=== PATIENT | female | born 1980 | race Two or more races ===

== ENCOUNTER 2018-07-14 08:00 | Outpatient (CLI) | payer OTHER ==
[2018-07-14 13:09] LABS: BUN - BLOOD UREA NITROGEN 14 mg/dL (6-20); CALCIUM 9.1 mg/dL (8.5-10.3); CARBON DIOXIDE - CO2 26 mmol/L (21-32); CHLORIDE 100 mmol/L (101-111); CHOL/HDL RATIO 4.1 (<4.4); CHOLESTEROL 156 mg/dL; CREATININE 0.8 mg/dL (0.4-1.0); GFR - MDRD 81 (>89); GLUCOSE 112 mg/dL (70-100); HDL CHOLESTEROL 38 mg/dL; LDL CHOLESTEROL,CALCULATED 97 mg/dL; LDL/HDL RATIO 2.6 (<4.4); SODIUM 136 mmol/L (135-145); VLDL CHOLESTEROL 21 mg/dL
== END 2018-07-14 23:59 | disposition home or self-care (01) ==
LOC: LAB.N 08:00
PROVIDERS: ATTEND Nurse Practitioner Gerontology
DX: I10 Essential (primary) hypertension (principal)
CPT/HCPCS: 36415; 80048; 80061; 83721

== ENCOUNTER 2019-05-19 14:55 | Outpatient (CLI) | payer BC | END 2019-05-19 23:59 | disposition home or self-care (01) | LOC: LAB.N 14:55 | PROVIDERS: ATTEND Nurse Practitioner Gerontology | DX: E03.9 Hypothyroidism, unspecified (principal); Z20.2 Contact with and (suspected) exposure to infections with a predominantly sexual mode of transmission; Z11.3 Encounter for screening for infections with a predominantly sexual mode of transmission | CPT/HCPCS: 36415; 81599; 84443; 86592 ==

== ENCOUNTER 2022-01-22 09:30 | Inpatient (IN) | payer MEDICAID ==
[2022-01-22] MEDS ORDERED: LABETALOL 20 MG/4 ML SYRINGE IVP ONE ×3 (10:07→12:13)
[2022-01-22] MEDS: NIFEdipine ER 30 MG TABLET PO SCH (10:09)
[2022-01-22 10:20] LABS: BASOPHILS % (AUTO) 0.4 %; EOSINOPHILS # (AUTO) 0.4 10^3/uL (0.0-0.7); EOSINOPHILS % (AUTO) 3.4 %; LYMPHOCYTES # (AUTO) 1.8 10^3/uL (1.5-3.5); LYMPHOCYTES % (AUTO) 15.5 %; MEAN CORPUSCULAR HEMOGLOBIN 20.9 pg (27.0-31.0); MEAN CORPUSCULAR VOLUME 69.8 fL (81.0-99.0); MEAN PLATELET VOLUME 9.8 fL (7.9-10.8); MONOCYTES # (AUTO) 0.7 10^3/uL (0.0-1.0); MONOCYTES % (AUTO) 6.4 %; NEUTROPHILS # (AUTO) 8.3 10^3/uL (1.5-6.6); NEUTROPHILS % (AUTO) 73.5 %; PLT - PLATELET COUNT 232 10^3/uL (130-450); RED CELL DISTRIBUTION WIDTH 17.3 % (12.0-15.0); WHITE BLOOD COUNT 11.3 x10^3/uL (4.8-10.8)
[2022-01-22 10:41] LABS: PROTEIN/CREATININE RATIO,URINE 0.5 (<=0.2)
[2022-01-22 10:59] LABS: ALBUMIN 2.8 g/dL (3.2-5.5); ALBUMIN/GLOBULIN RATIO 0.8 (1.0-2.2); BILIRUBIN,TOTAL 0.3 mg/dL (0.2-1.0); CALCIUM 8.8 mg/dL (8.5-10.3); CREATININE 0.7 mg/dL (0.4-1.0); POTASSIUM 3.8 mmol/L (3.5-5.0); TOTAL PROTEIN 6.5 g/dL (6.7-8.2)
--- NOTE | 2022-01-22 13:04 | PROVIDER PROGRESS NOTE ---
- HPI Current : Patient is a 41-year-old G1, P0 at 35 weeks gestation by LMP consistent with 11- week ultrasound, JASPER 02/26/2022, presenting to triage for elevated blood pressures in the setting of chronic hypertension. She was seen in clinic today for a first OB visit as a transfer from [place]. Blood pressure in clinic was 184/102. She was sent for evaluation for preeclampsia. She has had ongoing hypertension since approximately age 26. She was managed on lisinopril/hydrochlorothiazide prior to . She was switched to labetalol in but believes this caused her edema so she stopped approximately 1 month ago. She has not had anything in the interim. She has good movement, no leaking, no vaginal bleeding. She denies headache, right upper quadrant pain, changes in vision. She occasionally has headaches, but these have been easy to resolve. 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 This was followed and on 10/17/2021 was 1.16. 1 hour GTT of 117, Anemia at 8 g/dL taking ferrous sulfate. Chronic hypertension managed with labetalol, although patient has not been taking this. Uterine fibroids: Currently 6 cm low uterine segment anterior fibroid: Likely make labor difficult, and previous provider recommended a scheduled section Blood type: O+ Antibody screen negative H/H: 8.9/29.3% Pap: Negative Rubella: Immune RPR: Positive HBsAg: Negative HIV negative GC/CT: Negative/negative. Labs Past medical history Chronic hypertension: Managed with lisinopril/hydrochlorothiazide outside of Anemia Anxiety late latent syphilis Past surgical history Denies Family history Mother: Diabetes All other symptoms reviewed and were negative except per HPI. Social history Denies tobacco, alcohol, drugs Vital Signs Temperature 98.6 F 01/22/22 09:46 Heart Rate 78 01/22/22 09:46 Respiratory Rate 01/22/22 09:46 Blood Pressure 181/79 H 01/22/22 09:46 O2 Saturation 100 01/22/22 09:46 - Exam Physical Constitutional: alert, no acute distress, well hydrated, well developed, well nourished, appropriate dress. Cardiovascular: Regular rate and rhythm. Respiratory: no respiratory distress. Abdomen: nondistended, nontender, no guarding. Psych: affect and mood appropriate, normal interaction, good eye contact. FHT: 140 beats per minute baseline, moderate variability, accelerations present, no decelerations. Stamps: Rare - Procedures OB Procedure Performed: NST Diagnosis/Indication for NST: Pre- Hypertension NST Procedure: NST Procedure Start Date 01/22/22 Start Time 09:38 Stop Time 10:00 Vibroacoustic Stimulation Used No Patient States Movement Yes Service Date of procedure: 01/22/22 (read: 01/22/22) - Plan Plan: Assessment and plan 41-year-old at 35 weeks gestation with chronic hypertension 1. Chronic hypertension -We will treat with nifedipine 30 XR. Plan for additional dose in the p.m. if still elevated. We will treat with acute antihypertensives until stable. -Labs nonconcerning for severe preeclampsia. She does have an elevated protein creatinine ratio, but this may be from chronic hypertension as well. -Severe range blood pressure, if we get it controlled, may allow us to negative further in the . If unstable, will likely transfer to outside facility for delivery. -Once stable, will schedule weekly BPP and twice weekly NSTs as an outpatient -Plan for overnight observation and discharge or transfer tomorrow depending on status 2. 35 weeks gestation -Initial visit with [facility] today. 3. Morbid obesity 4. Uterine leiomyoma -6 cm fibroid may make delivery difficult. 5. History of late latent syphilis -Repeat RPR pending
[2022-01-22] MEDS ORDERED: NIFEdipine 10 MG CAPSULE PO PRN (16:26)
[2022-01-22] MEDS ORDERED: LABETALOL 20 MG/4 ML SYRINGE IVP PRN ×2 (16:26)
[2022-01-22] MEDS ORDERED: hydrALAZINE INJ 20 MG/ML VIAL IVP PRN ×2 (16:26)
[2022-01-22] MEDS ORDERED: ONDANSETRON ODT 4 MG TABLET TL PRN (16:26)
[2022-01-22] MEDS: ACETAMINOPHEN 500 MG TABLET PO PRN ×2 (16:54→23:47)
[2022-01-22] MEDS: SODIUM CHLORIDE FLUSH 0.9% 10 ML SYRINGE IVP SCH ×2 (16:59→20:00)
[2022-01-22] MEDS ORDERED: NIFEdipine ER 30 MG TABLET PO SCH (17:00)
[2022-01-22] MEDS ORDERED: NIFEdipine ER 30 MG TABLET PO ONE ×2 (17:00→21:00)
[2022-01-22] MEDS ORDERED: ZOLPIDEM 5 MG TABLET PO PRN (19:40)
[2022-01-22] MEDS: LABETALOL 20 MG/4 ML SYRINGE IVP PRN ×4 (22:10→22:50)
[2022-01-22] MEDS ORDERED: MAGNESIUM SULFATE 4 GRAM 4 GM/50 ML BAG IV ONE (22:30)
[2022-01-22] MEDS ORDERED: BETAMETHASONE 30 MG/5 ML VIAL IM ONE (22:31)
[2022-01-22] MEDS: LACTATED RINGERS 1,000 ML IV SCH (22:46)
[2022-01-22] MEDS: MAGNESIUM SULFATE IN WATER 20 GM/500 ML IV.SOLN IV SCH (23:11)
--- NOTE | 2022-01-22 23:32 | PROVIDER PROGRESS NOTE ---
Subjective - Prog Note Date Prog Note Date: 01/22/22 Prog Note Time: 23:25 - Subjective Subjective: Patient continues to have difficult to control blood pressures. So far today she is received 90 mg extended release nifedipine as well as numerous doses of IV labetalol which gives some control temporarily. Most recently, despite her additional doses of nifedipine, blood pressures been severe range. Most recently after escalating doses of labetalol from 20-40 80 mg, blood pressures finally became nonsevere and are currently in the 140s over 70s. Has were having difficulties with blood pressure control, I called [facility] for potential transfer. They agreed to transfer, we discussed keeping patient longer if we are able to control blood pressure is safely. Patient has received 1 dose of IM betamethasone for lung maturity. Currently on magnesium sulfate for seizure prophylaxis. Patient did develop a significant he adache despite recent Tylenol use. Will reevaluate after another dose when appropriate. Currently heart tracing remains category 1 with 145 beats per baseline, moderate variability, accelerations present, no decelerations. Cervix remains closed. No significant contractions. Plan to have a low threshold for transfer if blood pressures again becomes difficult to control. Objective - Vital Signs/Intake & Output Vital Signs: Vital Signs x48h Temp Pulse Resp BP BP Pulse Ox 01/22/22 21:30 73 158/91 H 99 01/22/22 21:05 75 163/84 H 01/22/22 20:35 73 159/80 H 01/22/22 20:00 98.4 F 76 18 156/85 H 158/90 H 99 01/22/22 18:46 73 18 142/85 H 99 01/22/22 18:14 98.2 F 01/22/22 17:56 73 16 143/80 H 01/22/22 16:52 98.4 F 70 16 157/91 H 01/22/22 15:50 153/76 H Intake & Output: Intake & Output 01/19/22 01/20/22 01/21/22 01/22/22 23:59 23:59 23:59 23:59 Intake Total 600 Output Total 300 Balance 300 - Lab Results Fish Bones: 01/22/22 10:16 01/22/22 10:16 Other Labs: Lab Results x24hrs 01/22/22 01/22/22 01/22/22 Range/Units 10:23 10:16 10:16 WBC 11.3 H (4.8-10.8) x10^3/uL RBC 4.30 (4.20-5.40) 10^6/uL Hgb 9.0 L (12.0-16.0) g/dL Hct 30.0 L (37.0-47.0) % MCV 69.8 L (81.0-99.0) fL MCH 20.9 L (27.0-31.0) pg MCHC 30.0 L (32.0-36.0) g/dL RDW 17.3 H (12.0-15.0) % Plt Count 232 (130-450) 10^3/uL MPV 9.8 (7.9-10.8) fL Neut # (Auto) 8.3 H (1.5-6.6) 10^3/uL Lymph # (Auto) 1.8 (1.5-3.5) 10^3/uL [place] # (Auto) 0.7 (0.0-1.0) 10^3/uL Eos # (Auto) 0.4 (0.0-0.7) 10^3/uL Baso # (Auto) 0.0 (0.0-0.1) 10^3/uL Absolute Nucleated RBC 0.00 x10^3/uL Nucleated RBC % 0.0 /100WBC Sodium 133 L (135-145) mmol/L Potassium 3.8 (3.5-5.0) mmol/L Chloride 110 (101-111) mmol/L Carbon Dioxide 21 (21-32) mmol/L Anion Gap 2.0 L (6-13) BUN 14 (6-20) mg/dL Creatinine 0.7 (0.4-1.0) mg/dL Estimated GFR (MDRD) 93 (>89) Glucose 85 (70-100) mg/dL Calcium 8.8 (8.5-10.3) mg/dL Total Bilirubin 0.3 (0.2-1.0) mg/dL AST 16 (10-42) IU/L ALT 13 (10-60) IU/L Alkaline Phosphatase 101 (42-121) IU/L Total Protein 6.5 L (6.7-8.2) g/dL Albumin 2.8 L (3.2-5.5) g/dL Globulin 3.7 (2.1-4.2) g/dL Albumin/Globulin Ratio 0.8 L (1.0-2.2) Urine Creatinine 184.0 mg/dL Ur Total Protein Timed 83 mg/dL Protein/Creatinin Ratio 0.5 H (<=0.2)
[2022-01-22 23:37] LABS: HCT - HEMATOCRIT 29.6 % (37.0-47.0); HGB - HEMOGLOBIN 8.7 g/dL (12.0-16.0); MEAN CORPUSCULAR HEMOGLOBIN 20.4 pg (27.0-31.0); MEAN CORPUSCULAR HGB CONC 29.4 g/dL (32.0-36.0); MEAN CORPUSCULAR VOLUME 69.5 fL (81.0-99.0); MEAN PLATELET VOLUME 10.3 fL (7.9-10.8); RED BLOOD COUNT 4.26 10^6/uL (4.20-5.40); RED CELL DISTRIBUTION WIDTH 17.5 % (12.0-15.0)
[2022-01-23 00:10] LABS: ALBUMIN 2.8 g/dL (3.2-5.5); ALBUMIN/GLOBULIN RATIO 0.8 (1.0-2.2); BILIRUBIN,TOTAL 0.2 mg/dL (0.2-1.0); CALCIUM 9.1 mg/dL (8.5-10.3); CREATININE 0.7 mg/dL (0.4-1.0); POTASSIUM 3.9 mmol/L (3.5-5.0); TOTAL PROTEIN 6.3 g/dL (6.7-8.2)
--- NOTE | 2022-01-23 01:58 | Ultrasound Report ---
PROCEDURE: OB Biophysical Profile INDICATIONS: Preeclampsia OUTSIDE/PRIOR DATING DATA: Last menstrual period (LMP): 05/22/2021. First dating scan (date and location): 08/31/2021. Estimated date of delivery (JASPER) from first dating scan: 02/26/2022. The below data below was generated using the JASPER of 02/26/2022 TECHNIQUE: Real-time scanning was performed of the fetus, with image documentation and biometric marsha surements. Biophysical profile was also obtained. COMPARISON: None available. FINDINGS: General: A single living intrauterine gestation is present. Presentation: Transverse with head on maternal right. Placenta: Placental position is posterior fundal, without previa. Amniotic fluid index: 21.4 cm. Deepest pocket: 6.3 cm. heart rate: 157 beats per minute. Maternal cervical canal: 3.0 cm long; normal length is 2.5 cm or more. Estimated gestational age from initial scan: 35 weeks 0 days. Biophysical profile: Tone: 2 points. Movement: 2 points. Respiration: 2 points. Largest pocket of fluid: 2 points. Umbilical artery Doppler: Umbilical artery Doppler demonstrates systolic/diastolic ratios of 2.6, 2. 5, and 2.3. IMPRESSION: 1. Single living intrauterine demonstrated in transverse presentation. 2. Biophysical profile score of 8/8. 3. Umbilical artery Doppler within normal limits with preserved diastolic flow demonstrated. 4. STEVE at the upper limits of normal measuring 21.4 cm. Reviewed by: Murphy Perez MD on 01/23/2022 1:57 AM PDT Approved by: Murphy Perez MD on 01/23/2022 1:57 AM PDT Station ID: [id number]
[2022-01-23] MEDS: ACETAMINOPHEN 500 MG TABLET PO PRN (05:27)
--- NOTE | 2022-01-23 06:28 | PROVIDER PROGRESS NOTE ---
Subjective - Prog Note Date Prog Note Date: 01/23/22 - Subjective Pt reports feeling: No change Subjective: Patient stabilized after magnesium sulfate started and antihypertensives controlled blood pressure. Intermittent headache, but doing well. Good movement. No leaking or bleeding. No abdominal pain or changes in vision. Objective - Vital Signs/Intake & Output Reviewed Vital Signs: Yes Vital Signs: Vital Signs x48h Temp Pulse Resp BP Pulse Ox 01/23/22 00:15 74 145/77 H 98 01/23/22 00:00 98.1 F 74 18 147/78 H 99 01/22/22 23:50 144/74 H 99 01/22/22 23:40 145/83 H 98 01/22/22 23:30 144/81 H 99 01/22/22 23:10 147/73 H 99 01/22/22 23:00 154/86 H 99 01/22/22 22:50 179/101 H 99 01/22/22 22:40 171/100 H 99 Intake & Output: Intake & Output 01/20/22 01/21/22 01/22/22 01/23/22 23:59 23:59 23:59 23:59 Intake Total 650 574 Output Total 500 507 Balance 150 67 - Objective General Appearance: positive: No acute distress Respiratory: positive: No respiratory distress, Breath sounds nml Cardiovascular: positive: Regular rate & rhythm Peripheral Pulses: 1+ Dorsalis pedis (R), 1+ Dorsalis pedis (L) Abdomen: positive: Non-tender Extremities: positive: Pedal edema (2+ left, 1+ right) Neurologic/Psychiatric: positive: Oriented x3, Mood/affect nml Reflexes: Bicep (R): 2+, Bicep (L): 1+, Knee (R): 1+, Knee (L): 0 - Lab Results Fish Bones: 01/22/22 22:59 01/22/22 22:59 Other Labs: Lab Results x24hrs 01/22/22 01/22/22 01/22/22 Range/Units 22:59 22:59 10:23 WBC 11.0 H (4.8-10.8) x10^3/uL RBC 4.26 (4.20-5.40) 10^6/uL Hgb 8.7 L (12.0-16.0) g/dL Hct 29.6 L (37.0-47.0) % MCV 69.5 L (81.0-99.0) fL MCH 20.4 L (27.0-31.0) pg MCHC 29.4 L (32.0-36.0) g/dL RDW 17.5 H (12.0-15.0) % Plt Count 240 (130-450) 10^3/uL MPV 10.3 (7.9-10.8) fL Neut # (Auto) (1.5-6.6) 10^3/uL Lymph # (Auto) (1.5-3.5) 10^3/uL [place] # (Auto) (0.0-1.0) 10^3/uL Eos # (Auto) (0.0-0.7) 10^3/uL Baso # (Auto) (0.0-0.1) 10^3/uL Absolute Nucleated RBC x10^3/uL Nucleated RBC % /100WBC Sodium 136 (135-145) mmol/L Potassium 3.9 (3.5-5.0) mmol/L Chloride 109 (101-111) mmol/L Carbon Dioxide 19 L (21-32) mmol/L Anion Gap 8.0 (6-13) BUN 12 (6-20) mg/dL Creatinine 0.7 (0.4-1.0) mg/dL Estimated GFR (MDRD) 93 (>89) Glucose 120 H (70-100) mg/dL Calcium 9.1 (8.5-10.3) mg/dL Total Bilirubin 0.2 (0.2-1.0) mg/dL AST 17 (10-42) IU/L ALT 12 (10-60) IU/L Alkaline Phosphatase 102 (42-121) IU/L Total Protein 6.3 L (6.7-8.2) g/dL Albumin 2.8 L (3.2-5.5) g/dL Globulin 3.5 (2.1-4.2) g/dL Albumin/Globulin Ratio 0.8 L (1.0-2.2) Urine Creatinine 184.0 mg/dL Ur Total Protein Timed 83 mg/dL Protein/Creatinin Ratio 0.5 H (<=0.2) 01/22/22 01/22/22 Range/Units 10:16 10:16 WBC 11.3 H (4.8-10.8) x10^3/uL RBC 4.30 (4.20-5.40) 10^6/uL Hgb 9.0 L (12.0-16.0) g/dL Hct 30.0 L (37.0-47.0) % MCV 69.8 L (81.0-99.0) fL MCH 20.9 L (27.0-31.0) pg MCHC 30.0 L (32.0-36.0) g/dL RDW 17.3 H (12.0-15.0) % Plt Count 232 (130-450) 10^3/uL MPV 9.8 (7.9-10.8) fL Neut # (Auto) 8.3 H (1.5-6.6) 10^3/uL Lymph # (Auto) 1.8 (1.5-3.5) 10^3/uL [place] # (Auto) 0.7 (0.0-1.0) 10^3/uL Eos # (Auto) 0.4 (0.0-0.7) 10^3/uL Baso # (Auto) 0.0 (0.0-0.1) 10^3/uL Absolute Nucleated RBC 0.00 x10^3/uL Nucleated RBC % 0.0 /100WBC Sodium 133 L (135-145) mmol/L Potassium 3.8 (3.5-5.0) mmol/L Chloride 110 (101-111) mmol/L Carbon Dioxide 21 (21-32) mmol/L Anion Gap 2.0 L (6-13) BUN 14 (6-20) mg/dL Creatinine 0.7 (0.4-1.0) mg/dL Estimated GFR (MDRD) 93 (>89) Glucose 85 (70-100) mg/dL Calcium 8.8 (8.5-10.3) mg/dL Total Bilirubin 0.3 (0.2-1.0) mg/dL AST 16 (10-42) IU/L ALT 13 (10-60) IU/L Alkaline Phosphatase 101 (42-121) IU/L Total Protein 6.5 L (6.7-8.2) g/dL Albumin 2.8 L (3.2-5.5) g/dL Globulin 3.7 (2.1-4.2) g/dL Albumin/Globulin Ratio 0.8 L (1.0-2.2) Urine Creatinine mg/dL Ur Total Protein Timed mg/dL Protein/Creatinin Ratio (<=0.2) Assessment/Plan - Problem List (1) Chronic hypertension Impression: -Plan to continue nifedipine XL with 60 mg this morning. Acute antihypertensives are needed. Thus far, fetus tolerating well, will try to avoid aggressively over correcting. -If blood pressure stabilizes, can discontinue magnesium sulfate after 24 hours. We will continue to observe patient and ensure no return of hypertension. -Magnesium level this morning pending -Labs not concerning for worsening preeclampsia, will repeat labs today. -Low threshold for delivery/transfer if patient has uncontrolled hypertension. -Continuous monitoring. (5) Uterine leiomyoma Impression: -Ultrasound showed lower uterine segment with a 6 cm fibroid approximately 4 cm to the right from cervical os. Could consider trial of labor if patient is stable, however fetus currently in transverse lie Qualifiers: Uterine leiomyoma location: intramural Qualified Code(s): D25.1 - Intramural leiomyoma of uterus (7) malpresentation Impression: Will repeat ultrasound prior to delivery Qualifiers: malpresentation type: transverse lie Fetus number: single or unspecified fetus Qualified Code(s): O32.2XX0 - Maternal care for transverse and oblique lie, not applicable or unspecified
[2022-01-23] MEDS ORDERED: ACETAMINOPHEN 500 MG TABLET PO PRN (07:00)
[2022-01-23 07:23] LABS: HGB - HEMOGLOBIN 9.1 g/dL (12.0-16.0); MEAN CORPUSCULAR HEMOGLOBIN 21.2 pg (27.0-31.0); MEAN CORPUSCULAR HGB CONC 30.3 g/dL (32.0-36.0); MEAN CORPUSCULAR VOLUME 69.8 fL (81.0-99.0); MEAN PLATELET VOLUME 10.2 fL (7.9-10.8); RED BLOOD COUNT 4.3 10^6/uL (4.20-5.40); RED CELL DISTRIBUTION WIDTH 17.4 % (12.0-15.0)
[2022-01-23 07:30] LABS: ALBUMIN/GLOBULIN RATIO 0.8 (1.0-2.2); BILIRUBIN,TOTAL 0.2 mg/dL (0.2-1.0); CALCIUM 8.5 mg/dL (8.5-10.3); CREATININE 0.7 mg/dL (0.4-1.0); POTASSIUM 4.6 mmol/L (3.5-5.0); TOTAL PROTEIN 6.6 g/dL (6.7-8.2)
[2022-01-23] MEDS: MAGNESIUM SULFATE IN WATER 20 GM/500 ML IV.SOLN IV SCH ×2 (08:49→18:07)
[2022-01-23] MEDS: LACTATED RINGERS 1,000 ML IV SCH (11:39)
[2022-01-23 19:29] LABS: ALBUMIN 2.6 g/dL (3.2-5.5); ALBUMIN/GLOBULIN RATIO 0.7 (1.0-2.2); BILIRUBIN,TOTAL 0.3 mg/dL (0.2-1.0); CALCIUM 7.9 mg/dL (8.5-10.3); CREATININE 0.7 mg/dL (0.4-1.0); TOTAL PROTEIN 6.1 g/dL (6.7-8.2)
[2022-01-23] MEDS ORDERED: ZOLPIDEM 5 MG TABLET PO PRN (19:48)
[2022-01-23] MEDS: CALCIUM CARBONATE CHEW 500 MG TABLET PO SCH (20:07)
[2022-01-23] MEDS: NIFEdipine ER 30 MG TABLET PO SCH (20:07)
[2022-01-23] MEDS ORDERED: BETAMETHASONE 30 MG/5 ML VIAL IM ONE (20:12)
[2022-01-23] MEDS: LABETALOL 20 MG/4 ML SYRINGE IVP PRN (21:12)
[2022-01-23] MEDS: SODIUM CHLORIDE FLUSH 0.9% 10 ML SYRINGE IVP SCH (21:15)
[2022-01-24] MEDS: CALCIUM CARBONATE CHEW 500 MG TABLET PO SCH (08:01)
[2022-01-24] MEDS: NIFEdipine ER 30 MG TABLET PO SCH (08:01)
--- NOTE | 2022-01-24 09:07 | PROVIDER PROGRESS NOTE ---
Subjective - Prog Note Date Prog Note Date: 01/24/22 Prog Note Time: 09:05 - Subjective Pt reports feeling: Improved Subjective: 41-year-old at 35 weeks 2 days gestation. Patient did well overnight. No acute events. No headache, change in vision, right upper quadrant pain. Magnesium was stopped yesterday evening. Objective - Vital Signs/Intake & Output Reviewed Vital Signs: Yes Vital Signs: Vital Signs x48h Temp Pulse Resp BP Pulse Ox 01/24/22 07:49 98.4 F 97 16 140/72 H 99 Intake & Output: Intake & Output 01/21/22 01/22/22 01/23/22 01/24/22 23:59 23:59 23:59 23:59 Intake Total 650 3022.917 100 Output Total 500 3627 400 Balance 150 -604.083 -300 - Objective General Appearance: positive: No acute distress Eyes Bilateral: positive: Normal inspection Respiratory: positive: No respiratory distress, Breath sounds nml Cardiovascular: positive: Regular rate & rhythm Abdomen: positive: Non-tender Neurologic/Psychiatric: positive: Oriented x3, CN's nml (2-12), Motor nml, Mood/affect nml - Lab Results Fish Bones: 01/24/22 09:34 01/24/22 09:34 Other Labs: Lab Results x24hrs 01/23/22 01/23/22 Range/Units 19:08 19:08 Sodium 131 L (135-145) mmol/L Potassium 4.0 (3.5-5.0) mmol/L Chloride 105 (101-111) mmol/L Carbon Dioxide 19 L (21-32) mmol/L Anion Gap 7.0 (6-13) BUN 11 (6-20) mg/dL Creatinine 0.7 (0.4-1.0) mg/dL Estimated GFR (MDRD) 93 (>89) Glucose 142 H (70-100) mg/dL Calcium 7.9 L (8.5-10.3) mg/dL Magnesium 5.3 H* (1.7-2.8) mg/dL Total Bilirubin 0.3 (0.2-1.0) mg/dL AST 16 (10-42) IU/L ALT 13 (10-60) IU/L Alkaline Phosphatase 98 (42-121) IU/L Total Protein 6.1 L (6.7-8.2) g/dL Albumin 2.6 L (3.2-5.5) g/dL Globulin 3.5 (2.1-4.2) g/dL Albumin/Globulin Ratio 0.7 L (1.0-2.2) - Other Results/Comments Other Results/Comments: NST: 135 bpm baseline, moderate variability, accelerations absent, no decelerations. Non-Reactive NST. [place]: Quiescent Assessment/Plan - Problem List (1) Chronic hypertension Impression: -Blood pressure much better controlled, currently on 30 mg nifedipine extended release twice daily. -Did require 1 dose of IV labetalol last night in the transition, may require additional medication, but hesitant to drop diastolic blood pressure more. -A.m. labs not concerning for preeclampsia. -We will schedule for twice weekly NST and once weekly BPP. -Arranging care at outside facility due to her high risk of complication during surgery. -Plan to observe patient throughout the day and if stable can likely be discharged after 24 hours of magnesium. -Status post 2 doses of steroids and 24 hours of magnesium. -Discussed that we will likely move towards delivery if blood pressures elevate again and are difficult to manage. (2) Chronic hypertension affecting Impression: -Fetus tolerating well. We will continue with outpatient NST/BPP's (3) 35 weeks gestation of Impression: -NST every shift, continuous if blood pressures elevate. -Blood glucose elevated from steroids. (4) Obesities, morbid Impression: Additional risk factor for difficult section. Due to limited blood availability, difficulties with regional anesthesia, and overall resources, would likely benefit from delivering elsewhere. (5) Uterine leiomyoma Impression: -Right-sided, lower uterine segment leiomyoma measuring 6 cm, appears transmural. Likely inhibiting baby from turning and will inhibit labor. Qualifiers: Uterine leiomyoma location: intramural Qualified Code(s): D25.1 - Intramural leiomyoma of uterus (6) Leiomyoma of uterus during in third trimester Impression: May make labor difficult, but not absolute contraindication for trial of labor. More likely to prevent cephalic presentation. (7) malpresentation Qualifiers: malpresentation type: transverse lie Fetus number: single or unspecified fetus Qualified Code(s): O32.2XX0 - Maternal care for transverse and oblique lie, not applicable or unspecified
[2022-01-24 10:21] LABS: BASOPHILS % (AUTO) 0.1 %; EOSINOPHILS % (AUTO) 0.1 %; HCT - HEMATOCRIT 30.7 % (37.0-47.0); HGB - HEMOGLOBIN 9.1 g/dL (12.0-16.0); LYMPHOCYTES # (AUTO) 0.9 10^3/uL (1.5-3.5); LYMPHOCYTES % (AUTO) 7.3 %; MEAN CORPUSCULAR HEMOGLOBIN 20.8 pg (27.0-31.0); MEAN CORPUSCULAR HGB CONC 29.6 g/dL (32.0-36.0); MEAN CORPUSCULAR VOLUME 70.1 fL (81.0-99.0); MEAN PLATELET VOLUME 9.9 fL (7.9-10.8); MONOCYTES # (AUTO) 0.4 10^3/uL (0.0-1.0); MONOCYTES % (AUTO) 3.2 %; NEUTROPHILS # (AUTO) 11.2 10^3/uL (1.5-6.6); NEUTROPHILS % (AUTO) 87.5 %; NRBC ABSOLUTE COUNT (AUTO) 0.02 x10^3/uL; NUCLEATED RED BLOOD CELLS AUTO 0.2 /100WBC; PLT - PLATELET COUNT 256 10^3/uL (130-450); RED BLOOD COUNT 4.38 10^6/uL (4.20-5.40); RED CELL DISTRIBUTION WIDTH 17.2 % (12.0-15.0); WHITE BLOOD COUNT 12.8 x10^3/uL (4.8-10.8)
[2022-01-24 10:22] LABS: ALBUMIN/GLOBULIN RATIO 0.8 (1.0-2.2); BILIRUBIN,TOTAL 0.5 mg/dL (0.2-1.0); CALCIUM 8.3 mg/dL (8.5-10.3); CREATININE 0.9 mg/dL (0.4-1.0); POTASSIUM 4.2 mmol/L (3.5-5.0); TOTAL PROTEIN 6.8 g/dL (6.7-8.2)
[2022-01-24] MEDS: SODIUM CHLORIDE FLUSH 0.9% 10 ML SYRINGE IVP SCH (15:20)
[2022-01-24] MEDS: SODIUM CHLORIDE FLUSH 0.9% 10 ML SYRINGE IVP PRN ×2 (15:21→18:00)
[2022-01-24] MEDS: LABETALOL 20 MG/4 ML SYRINGE IVP PRN (17:58)
[2022-01-24] MEDS ORDERED: MAGNESIUM SULFATE 4 GRAM 4 GM/50 ML BAG IV ONE (18:12)
--- NOTE | 2022-01-24 18:26 | PROVIDER PROGRESS NOTE ---
Subjective - Prog Note Date Prog Note Date: 01/24/22 Prog Note Time: 18:24 - Subjective Subjective: Patient with severe range blood pressures again. Treating with IV labetalol. Patient feels hot, but no headache, change, right upper quadrant pain. Good f etal movement. No contractions. Objective - Vital Signs/Intake & Output Reviewed Vital Signs: Yes Vital Signs: Vital Signs x48h Temp Pulse Resp BP Pulse Ox 01/24/22 17:39 87 171/85 H 01/24/22 17:35 98.2 F 83 20 166/77 H 100 01/24/22 15:19 153/74 H 01/24/22 15:17 98.1 F 84 20 162/86 H 100 01/24/22 11:31 98.8 F 88 16 149/81 H 100 Intake & Output: Intake & Output 01/21/22 01/22/22 01/23/22 01/24/22 23:59 23:59 23:59 23:59 Intake Total 650 3022.917 100 Output Total 500 3627 600 Balance 150 -604.083 -500 - Objective General Appearance: positive: No acute distress Respiratory: positive: No respiratory distress, Breath sounds nml Cardiovascular: positive: Regular rate & rhythm Abdomen: positive: Non-tender Neurologic/Psychiatric: positive: Oriented x3, CN's nml (2-12) - Lab Results Fish Bones: 01/24/22 18:29 01/24/22 18:29 Other Labs: Lab Results x24hrs 01/24/22 01/24/22 01/23/22 Range/Units 09:34 09:34 19:08 WBC 12.8 H (4.8-10.8) x10^3/uL RBC 4.38 (4.20-5.40) 10^6/uL Hgb 9.1 L (12.0-16.0) g/dL Hct 30.7 L (37.0-47.0) % MCV 70.1 L (81.0-99.0) fL MCH 20.8 L (27.0-31.0) pg MCHC 29.6 L (32.0-36.0) g/dL RDW 17.2 H (12.0-15.0) % Plt Count 256 (130-450) 10^3/uL MPV 9.9 (7.9-10.8) fL Neut # (Auto) 11.2 H (1.5-6.6) 10^3/uL Lymph # (Auto) 0.9 L (1.5-3.5) 10^3/uL [place] # (Auto) 0.4 (0.0-1.0) 10^3/uL Eos # (Auto) 0.0 (0.0-0.7) 10^3/uL Baso # (Auto) 0.0 (0.0-0.1) 10^3/uL Absolute Nucleated RBC 0.02 x10^3/uL Nucleated RBC % 0.2 /100WBC Sodium 134 L (135-145) mmol/L Potassium 4.2 (3.5-5.0) mmol/L Chloride 107 (101-111) mmol/L Carbon Dioxide 17 L (21-32) mmol/L Anion Gap 10.0 (6-13) BUN 17 (6-20) mg/dL Creatinine 0.9 (0.4-1.0) mg/dL Estimated GFR (MDRD) 69 L (>89) Glucose 204 H (70-100) mg/dL Calcium 8.3 L (8.5-10.3) mg/dL Magnesium 5.3 H* (1.7-2.8) mg/dL Total Bilirubin 0.5 (0.2-1.0) mg/dL AST 20 (10-42) IU/L ALT 16 (10-60) IU/L Alkaline Phosphatase 107 (42-121) IU/L Total Protein 6.8 (6.7-8.2) g/dL Albumin 3.0 L (3.2-5.5) g/dL Globulin 3.8 (2.1-4.2) g/dL Albumin/Globulin Ratio 0.8 L (1.0-2.2) 01/23/22 Range/Units 19:08 WBC (4.8-10.8) x10^3/uL RBC (4.20-5.40) 10^6/uL Hgb (12.0-16.0) g/dL Hct (37.0-47.0) % MCV (81.0-99.0) fL MCH (27.0-31.0) pg MCHC (32.0-36.0) g/dL RDW (12.0-15.0) % Plt Count (130-450) 10^3/uL MPV (7.9-10.8) fL Neut # (Auto) (1.5-6.6) 10^3/uL Lymph # (Auto) (1.5-3.5) 10^3/uL [place] # (Auto) (0.0-1.0) 10^3/uL Eos # (Auto) (0.0-0.7) 10^3/uL Baso # (Auto) (0.0-0.1) 10^3/uL Absolute Nucleated RBC x10^3/uL Nucleated RBC % /100WBC Sodium 131 L (135-145) mmol/L Potassium 4.0 (3.5-5.0) mmol/L Chloride 105 (101-111) mmol/L Carbon Dioxide 19 L (21-32) mmol/L Anion Gap 7.0 (6-13) BUN 11 (6-20) mg/dL Creatinine 0.7 (0.4-1.0) mg/dL Estimated GFR (MDRD) 93 (>89) Glucose 142 H (70-100) mg/dL Calcium 7.9 L (8.5-10.3) mg/dL Magnesium (1.7-2.8) mg/dL Total Bilirubin 0.3 (0.2-1.0) mg/dL AST 16 (10-42) IU/L ALT 13 (10-60) IU/L Alkaline Phosphatase 98 (42-121) IU/L Total Protein 6.1 L (6.7-8.2) g/dL Albumin 2.6 L (3.2-5.5) g/dL Globulin 3.5 (2.1-4.2) g/dL Albumin/Globulin Ratio 0.7 L (1.0-2.2) - Other Results/Comments Other Results/Comments: FHT: 150 beats minute baseline, moderate variability, no accelerations, no decelerations [place]: Quiescent SVE: 0/0/-3 Transverse by bedside ultrasound today. Assessment/Plan - Problem List (1) Chronic hypertension Impression: -Blood pressure presenting like superimposed preeclampsia with severe features. Very labile blood pressures, treating again with IV labetalol. Discussed that our attempts to keep longer are becoming difficult. Hard to control her systolic when her diastolic is frequently low. Blood pressures recently though 160s to 170s over 80s. But this is compounded by frequent systolic blood pressures in the 160s 170s but diastolic pressures often in the 50s to 60s. Discussed the risks of treating her systolic pressure versus harm by dropping her diastolic lower. -Currently on my card to pain 30 mg extended release twice daily as well as acute treatment with IV labetalol. -Repeat labs pending, but so far only proteinuria. -Magnesium sulfate restarted -Status post corticosteroids on 01/22 and 01/23 -We kindly thank Dr. Roque Barger for accepting her at [facility]. (2) Chronic hypertension affecting Impression: We will move towards delivery (3) 35 weeks gestation of Impression: - Status post 2 doses of late corticosteroids (4) Obesities, morbid Impression: BMI 48.4 (5) Uterine leiomyoma Impression: Right anterior lower uterine segment fibroid measuring 6 cm. Likely the cause of malpresentation. Qualifiers: Uterine leiomyoma location: intramural Qualified Code(s): D25.1 - Intramural leiomyoma of uterus (7) malpresentation Impression: Transverse lie with head to maternal right Qualifiers: malpresentation type: transverse lie Fetus number: single or unspecified fetus Qualified Code(s): O32.2XX0 - Maternal care for transverse and oblique lie, not applicable or unspecified (8) Anemia affecting Impression: Most recent hemoglobin of 9.1.
[2022-01-24 18:34] LABS: BASOPHILS % (AUTO) 0.1 %; EOSINOPHILS % (AUTO) 0.1 %; HCT - HEMATOCRIT 28.3 % (37.0-47.0); HGB - HEMOGLOBIN 8.3 g/dL (12.0-16.0); LYMPHOCYTES # (AUTO) 1.7 10^3/uL (1.5-3.5); MEAN CORPUSCULAR HEMOGLOBIN 20.6 pg (27.0-31.0); MEAN CORPUSCULAR HGB CONC 29.3 g/dL (32.0-36.0); MEAN CORPUSCULAR VOLUME 70.2 fL (81.0-99.0); MEAN PLATELET VOLUME 9.6 fL (7.9-10.8); MONOCYTES # (AUTO) 1.2 10^3/uL (0.0-1.0); MONOCYTES % (AUTO) 8.6 %; NEUTROPHILS # (AUTO) 10.7 10^3/uL (1.5-6.6); NEUTROPHILS % (AUTO) 77.5 %; NRBC ABSOLUTE COUNT (AUTO) 0.04 x10^3/uL; NUCLEATED RED BLOOD CELLS AUTO 0.3 /100WBC; PLT - PLATELET COUNT 253 10^3/uL (130-450); RED BLOOD COUNT 4.03 10^6/uL (4.20-5.40); RED CELL DISTRIBUTION WIDTH 17.2 % (12.0-15.0); WHITE BLOOD COUNT 13.8 x10^3/uL (4.8-10.8)
[2022-01-24 18:45] LABS: ALBUMIN 2.8 g/dL (3.2-5.5); ALBUMIN/GLOBULIN RATIO 0.8 (1.0-2.2); BILIRUBIN,TOTAL 0.4 mg/dL (0.2-1.0); CALCIUM 8.5 mg/dL (8.5-10.3); POTASSIUM 3.9 mmol/L (3.5-5.0); TOTAL PROTEIN 6.4 g/dL (6.7-8.2)
[2022-01-24] MEDS: LACTATED RINGERS 1,000 ML IV SCH (18:47)
[2022-01-24] MEDS ORDERED: MAGNESIUM SULFATE IN WATER 20 GM/500 ML IV.SOLN IV SCH (19:00)
[2022-01-24] MEDS: MAGNESIUM SULFATE IN WATER 20 GM/500 ML IV.SOLN IV SCH (19:10)
[2022-01-24] MEDS ORDERED: NIFEdipine ER 30 MG TABLET PO ONE (20:00)
[2022-01-24 21:39] VITALS: BP 152/73
--- NOTE | 2022-01-27 12:08 | DISCHARGE SUMMARY ---
Discharge Summary Admit Date: 01/22/22 Discharge Date: 01/24/22 Discharging Provider: Refugio Abad MD Code Status: Attempt Resuscitation Condition at Discharge: Good Discharge Disposition: 02 Transfer Acute Care Hosp Discharge Facility Name: [facility] - DIAGNOSES Admission Diagnoses: 35 weeks gestation Chronic hypertension with superimposed preeclampsia Morbid obesity Uterine leiomyoma History of Late latent syphilis Discharge Diagnoses with Status of Each Condition: 35 weeks gestation: transferred Chronic hypertension with superimposed preeclampsia: Stable Morbid obesity: Unchanged Uterine leiomyoma: Stable History of Late latent syphilis: Resolved malpresentation: Stable - HPI History of Present Illness: Denies headache, change in vision, right upper quadrant pain. Did have Tylenol which resolved her previous headache. Good movement. No leaking or bl eeding. Blood pressures continue be hard to control - HOSPITAL COURSE Hospital Course: Patient is a 41-year-old who is admitted at 40 weeks for uncontrolled hypertension. She was admitted for blood pressure control. She was started on nifedipine extended release and received up to 90 mg daily, but still required intermittent IV labetalol use. She had essentially normal labs other than a protein to creatinine ratio of 0.5. Creatinine was 0.7 upon admission and crept up to 1.0 by admission day 2. She did receive 2 doses of IM betamethasone for lung maturity. She was started on magnesium sulfate for seizure prophylaxis. After 2 days of attempted blood pressure control and attempt to get her closer to term, still requiring acute antihypertensives, she was transferred to [facility] for high-level care in anticipation of delivery. - ALLERGIES Allergies/Adverse Reactions: Allergies Allergy/AdvReac Type Severity Reaction Status Date / Time Sulfa (Sulfonamide Allergy Hives Verified 01/22/22 11:35 Antibiotics) - PHYSICAL EXAM AT DISCHARGE General Appearance: positive: No acute distress Eyes Bilateral: positive: Normal inspection Respiratory: positive: No respiratory distress Cardiovascular: positive: Regular rate & rhythm Peripheral Pulses: positive: 2+ Abdomen: positive: Non-tender Extremities: positive: Pedal edema Neurologic/Psychiatric: positive: Oriented x3, CN's nml (2-12) Reflexes: Bicep (R): 2+, Bicep (L): 2+, Knee (R): 1+, Knee (L): 1+ - LABS Result Diagrams: 01/24/22 18:29 01/24/22 18:29 - FOLLOW UP Follow Up: With Refugio Abad at [facility] [place] in 1 to 2 weeks - TIME SPENT Time Spent in Discharge (Minutes): 180 (Time spent coordinating with various hospitals for transfer.)
[2022-01-30 12:08] LABS: RPR Reactive (Non Reactive); RPR QUANT 1:32 (NonRea<1:1); TREPONEMA PALLIDUM ANTIBODIES Note: (Non Reactive)
== END 2022-01-24 20:54 | disposition short-term general hospital (02) | DRG 833 ==
LOC: WFO 09:30 → FBP 09:34 → WFO 16:25 → FBP 16:26 → OBSVTOIN 01-23 06:25
PROVIDERS: ADMIT Obstetrics & Gynecology; ATTEND Obstetrics & Gynecology
DX: O11.3 Pre-existing hypertension with pre-eclampsia, third trimester (principal); O10.913 Unspecified pre-existing hypertension complicating pregnancy, third trimester; Z3A.35 35 weeks gestation of pregnancy; O99.213 Obesity complicating pregnancy, third trimester; E66.01 Morbid (severe) obesity due to excess calories; O34.13 Maternal care for benign tumor of corpus uteri, third trimester; D25.1 Intramural leiomyoma of uterus; O32.2XX0 Maternal care for transverse and oblique lie, not applicable or unspecified; Z20.822 Contact with and (suspected) exposure to COVID-19
CPT/HCPCS: 36415; 59025; 76819; 80053; 82570; 83735; 84156; 85025; 85027; 86592; 86593; 86780; 87635; 96365; 96372; 99215; A9270; J7120; Q0162; J3475

== ENCOUNTER 2022-02-09 13:45 | Outpatient (CLI) | payer MEDICAID ==
[2022-02-09 13:57] LABS: HCT - HEMATOCRIT 31.7 % (37.0-47.0); HGB - HEMOGLOBIN 9.3 g/dL (12.0-16.0); MEAN CORPUSCULAR HEMOGLOBIN 21.6 pg (27.0-31.0); MEAN CORPUSCULAR HGB CONC 29.3 g/dL (32.0-36.0); MEAN CORPUSCULAR VOLUME 73.5 fL (81.0-99.0); MEAN PLATELET VOLUME 8.6 fL (7.9-10.8); RED BLOOD COUNT 4.31 10^6/uL (4.20-5.40); RED CELL DISTRIBUTION WIDTH 20.1 % (12.0-15.0); WHITE BLOOD COUNT 7.6 x10^3/uL (4.8-10.8)
[2022-02-09 14:09] LABS: ALBUMIN 3.8 g/dL (3.2-5.5); ALBUMIN/GLOBULIN RATIO 1.2 (1.0-2.2); BILIRUBIN,TOTAL 0.2 mg/dL (0.2-1.0); CALCIUM 9.2 mg/dL (8.5-10.3); POTASSIUM 3.7 mmol/L (3.5-5.0); URIC ACID 7.4 mg/dL (2.6-7.2)
== END 2022-02-09 13:46 | disposition home or self-care (01) ==
LOC: LAB 13:45
PROVIDERS: ATTEND Obstetrics & Gynecology
DX: O16.9 Unspecified maternal hypertension, unspecified trimester (principal)
CPT/HCPCS: 36415; 80053; 84550; 85027